=== PATIENT | male | born 1950 | race Caucasian/White ===

== ENCOUNTER 2017-08-01 20:53 | Emergency (ER) | payer OTHER | END 2017-08-02 00:33 | disposition other institution (70) | LOC: ED 20:53 | DX: Z02.89 Encounter for other administrative examinations (principal) ==

== ENCOUNTER 2017-08-01 20:53 | Emergency (ER) | payer SELFPAY ==
[~2017-08-01] VITALS: Ht 167.6 cm; Wt 63.0 kg
[2017-08-01 21:07] VITALS: Ht 167.6 cm; Wt 63.0 kg
[2017-08-01 23:22] LABS: CALCIUM 8.3 mg/dL (8.5-10.1); CARBON DIOXIDE 32.4 mmol/L (21-32); CHLORIDE SERUM 102 mmol/L (98-107); CREATININE SERUM 0.9 mg/dL (0.7-1.3); GFR1 > 60 mL/min; GLUCOSE SERUM 84 mg/dL (74-106); POTASSIUM SERUM 3.3 mmol/L (3.5-5.1); SODIUM SERUM 141 mmol/L (136-145)
[2017-08-01 23:23] LABS: BASOPHIL % 0.7 % (0-2); PLATELET COUNT 292 x10^3mcL (130-400)
[2017-08-01 23:31] LABS: RED CELL DISTRIBUTION WIDTH 18.5 % (11.5-14.5)
[2017-08-02 00:33] VITALS: BP 101/59
== END 2017-08-02 00:33 | disposition other institution (70) ==
LOC: ED 20:53
PROVIDERS: Emergency Medicine
DX: S50.351A Superficial foreign body of right elbow, initial encounter (principal); X58.XXXA Exposure to other specified factors, initial encounter; Y93.89 Activity, other specified; Y92.89 Other specified places as the place of occurrence of the external cause; Y99.8 Other external cause status; S50.01XA Contusion of right elbow, initial encounter
CPT/HCPCS: 36415; 90715; Q0092